=== PATIENT | female | born 1980 | race Caucasian/White ===

== ENCOUNTER 2017-08-05 07:34 | Day surgery (SDC) | payer OTHER ==
[2017-08-04 17:54] VITALS: BMI 21.4
[2017-08-05] MEDS ORDERED: PROPOFOL 20 ML ONE (09:20)
[2017-08-05] MEDS ORDERED: MIDAZOLAM HCL 2 MG/2 ML SINGLE DOSE VIAL ONE (09:20)
--- NOTE | 2017-08-05 09:22 | HP ---
History & Physical Update - History History: No Change - Physical Physical: No Change - Assessment Assessment: No Change - Plan Plan: No Change
[2017-08-05] MEDS ORDERED: BUPIVACAINE 0.75% IN DEXTROSE/PF 2ML AMPULE NR ONE ×2 (09:42→09:43)
--- NOTE | 2017-08-05 09:42 | HP ---
Admitting History and Physical - Admission Chief Complaint: external hemorrhoid History Source: Patient Limitations to Obtaining History: No Limitations - Past Medical History Gastrointestinal: Yes: Hemorrhoids ...LMP: 07/21/17 ...: No (HAS IUD) - Past Surgical History Additional Past Surgical History: hemorrhoidectomy - Smoking History Smoking history: Never smoked Have you smoked in the past 12 months: No - Alcohol/Substance Use Hx Alcohol Use: Yes (RARELY) Home Medications - Allergies Allergies/Adverse Reactions: Allergies Allergy/AdvReac Type Severity Reaction Status Date / Time No Known Drug Allergies Allergy Verified 08/05/17 08:11 - Home Medications Home Medications: Ambulatory Orders NK [No Known Home Medication] 08/04/17 Review of Systems - Review of Systems Constitutional: reports: No Symptoms Gastrointestinal: reports: Other (gage-anal irritation and occasional bleeding) Physical Examination Vital Signs: Vital Signs Temperature 98.2 F 08/05/17 08:05 Pulse Rate 68 08/05/17 08:05 Respiratory Rate 16 08/05/17 08:05 Blood Pressure 92/63 08/05/17 08:05 O2 Sat by Pulse Oximetry (%) 98 08/05/17 08:07 Constitutional: Yes: Well Nourished Eyes: Yes: Conjunctiva Clear HENT: Yes: Normocephalic Neck: Yes: Supple Cardiovascular: Yes: Regular Rate and Rhythm Respiratory: Yes: CTA Bilaterally Gastrointestinal: Yes: Soft ...Rectal Exam: Yes: Hemorrhoids/External (1.5 cm at 12:00) Problem List - Problems (1) External hemorrhoid Assessment/Plan: Examination under anesthesia, hemorrhoidectomy Code(s): K64.4 - RESIDUAL HEMORRHOIDAL SKIN TAGS
[2017-08-05] MEDS ORDERED: BUPIVACAINE HCL/PF 0.25% (2.5MG/ML) 10 ML VIAL ONE ×2 (10:34→10:38)
[2017-08-05] MEDS ORDERED: BUPIVACAINE HCL/PF 0.25% (2.5MG/ML) 10 ML VIAL IJ ONE (10:37)
[2017-08-05] MEDS ORDERED: ONDANSETRON 4 MG/2 ML VIAL IVPUSH PRN (10:55)
[2017-08-05] MEDS ORDERED: oxyCODONE HCL 5 MG TABLET PO PRN (10:55)
[2017-08-05] MEDS ORDERED: LACTATED RINGERS SOLUTION 1,000 ML IV SCH (11:00)
--- NOTE | 2017-08-05 11:08 | OP ---
Operative Note - Note: Operative Date: 08/05/17 Pre-Operative Diagnosis: hemorrhoids Operation: eamination under anesthesia, hemorrhoidectomy Findings: right anterior external hemorrhoid and right posterior internal and external stage 3 hemorrhoids Post-Operative Diagnosis: Same as Pre-op Surgeon: Grady Fowler Anesthesia: Spinal Specimens Removed: hemorrhoids Estimated Blood Loss (mls): 5 Operative Report Dictated: Yes
[2017-08-05 13:57] VITALS: TEMP 98
[2017-08-05 15:00] VITALS: BP 119/72; PULSE 100
--- NOTE | 2017-08-05 17:00 | OP ---
DATE OF OPERATION: 08/05/2017 PROCEDURE: Examination under anesthesia, external hemorrhoidectomy, and right posterior column internal-external hemorrhoidectomy. PREOPERATIVE DIAGNOSIS: External hemorrhoids. POSTOPERATIVE DIAGNOSIS: Stage 3 internal-external hemorrhoids and external hemorrhoid SURGEON: Grady Fowler M.D. ANESTHESIA: Spinal anesthesia. FINDINGS AND PROCEDURE: This is a 36-year-old female who presents with recurrent hemorrhoids following hemorrhoidectomy in 2015 at 12 o'clock position. Patient is complaining of irritation with intermittent bleeding. The patient was advised hemorrhoidectomy and consent was obtained after discussing the risks, benefits, and alternatives to the procedure. DESCRIPTION OF PROCEDURE: Patient was brought to the operating room and placed in seated position. Spinal anesthesia was administered. Patient was then placed in lithotomy position. The perineum was prepped and draped in the usual sterile fashion using lidocaine 1% with epinephrine, gage-anal local anesthesia was administered. The distal rectuml and anal canal was carefully inspected [facility]. On examination, there is a 1 cm external hemorrhoid at the 12 o'clock position and a smaller internal hemorrhoids at left lateral column, and stage 3 internal- external hemorrhoid of the right posterior hemorrhoidal column. There were smaller minor hemorrhoids in between the smaller internal hemorrhoids at 5 o'clock and one at the 8 o'clock position. The 12 o' clock hemorrhoid close to the right anterior hemorrhoidal column was suture ligated with Vicryl 3-0 at the base and excised using Bovie cautery. The wound was closed with continuous Vicryl 3-0 suture from the suture ligature. After that the right posterior hemorrhoidal column was suture ligated at its base using Vicryl 3-0. This was then excised using Bovie. The internal-external components were then excised using the Bovie cautery. The wound was again closed with continuous Vicryl 3-0 suture. The anal canal was again carefully inspected and was noted to be free of active bleeding. The anal canal was then lightly packed with Xeroform gauze. Additional 0.25% bupivacaine was administered, mainly for postoperative anesthesia. Patient was placed back in supine position and transferred to the postanesthesia care unit in satisfactory condition. Estimated blood loss was about 5 mL, wound class contaminated. Patient received one gram of Cefazolin as preoperative antibiotic. GRADY FOWLER M.D. REINA/[id number] NATI
--- NOTE | 2017-08-08 17:51 | PATH ---
Surgical Pathology Report Patient Name: JOVAN COX [facility]. Rec. #: [id number] /Age/Gender: 1980 (Age: 36) / F Account: [id number] Location: [facility] SURGICAL Taken: 08/05/2017 Received: 08/05/2017 Reported: 08/08/2017 Physicians: Grady Fowler M.D. Specimen(s) Received HEMORRHOIDS Clinical History Hemorrhoids Final Diagnosis ANUS, HEMORRHOIDS, HEMORRHOIDECTOMY: POLYPOID SQUAMOUS MUCOSA WITH DILATED THICK WALLED CONGESTED SUBMUCOSAL VESSELS CONSISTENT WITH HEMORRHOIDS. Electronically Signed Francesca Zeng M.D. Gross Description Received in formalin labeled "hemorrhoids," are 5 haynes brown, irregular to polypoid portions of skin ranging from 0.4-1.0 cm in greatest dimension, consistent with hemorrhoids. The specimens are submitted in toto in one cassette. /08/05/201708/05/2017
== END 2017-08-05 16:05 | disposition home or self-care (01) ==
LOC: JASU-SURG 07:34
PROVIDERS: ATTEND Surgery
PROC: 06BY0ZC Excision of Hemorrhoidal Plexus, Open Approach (ICD-10-PCS; 2017-08-05)
PROC: 0DBQXZZ Excision of Anus, External Approach (ICD-10-PCS; principal; 2017-08-05 09:00)
DX: K64.2 Third degree hemorrhoids (principal)
CPT/HCPCS: 84703; 88304-TC; 94760